=== PATIENT | male | born 1980 | race African-American/Black ===

== ENCOUNTER 2017-11-30 17:01 | Inpatient (IN) | payer OTHER ==
[2017-11-30 18:14] VITALS: BMI 50.2
--- NOTE | 2017-11-30 20:18 | HP ---
Admission ROS [facility] Chief Complaint: Seeking admission to Rehab Allergies/Adverse Reactions: Allergies Allergy/AdvReac Type Severity Reaction Status Date / Time shellfish derived Allergy Severe Hives Verified 11/30/17 18:15 History of Present Illness: 37 years old male with a long history of cocaine and marijuana dependence is seeking admission to Rehab. Patient was in court mandated Rehab. in 2001 at [facility]. He has medical history of asthma and depression. Denies suicide attempt and suicidal ideation at this time. Exam Limitations: No Limitations - Ebola screening Have you traveled outside of the country in the last 21 days: No Have you had contact with anyone from an Ebola affected area: No Have you been sick,other than usual withdrawal symptoms: No Do you have a fever: No - Review of Systems Constitutional: No Symptoms Reported EENT: reports: No Symptoms Reported Respiratory: reports: No Symptoms reported GI: reports: No Symptoms Reported : reports: No Symptoms Reported Musculoskeletal: reports: No Symptoms Reported Integumentary: reports: No Symptoms Reported Neuro: reports: No Symptoms reported Endocrine: reports: No Symptoms Reported Hematology: reports: No Symptoms Reported Psychiatric: reports: No Sypmtoms Reported, Mood/Affect Appropiate, Orientated x3 Other Systems: Reviewed and Negative Patient History - Patient Medical History Hx Anemia: No Hx Asthma: Yes (Albuterol) Hx Chronic Obstructive Pulmonary Disease (COPD): No Hx Cancer: No Hx Cardiac Disorders: No Hx Congestive Heart Failure: No Hx Hypertension: No Hx Hypercholesterolemia: No Hx Pacemaker: No HX Cerebrovascular Accident: No Hx Seizures: No Hx Dementia: No Hx Diabetes: No Hx Gastrointestinal Disorders: No Hx Liver Disease: No Hx Genitourinary Disorders: No Hx Sexually Transmitted Disorders: No Hx Renal Disease (ESRD): No Hx Thyroid Disease: No Hx Human Immunodeficiency Virus (HIV): No (Negative 201q8) Hx Hepatitis C: No Hx Depression: No Hx Suicide Attempt: No (Denies suicide attempt and suicidal ideation at this tuime) Hx Bipolar Disorder: No Hx Schizophrenia: No - Patient Surgical History Past Surgical History: No Hx Neurologic Surgery: No Hx Cataract Extraction: No Hx Cardiac Surgery: No Hx Lung Surgery: No Hx Abdominal Surgery: No Hx Appendectomy: No Hx Cholecystectomy: No Hx Genitourinary Surgery: No Hx Orthopedic Surgery: No Other Surgical History: Tonsillectomy 2000 Anesthesia Reaction: No - PPD History Previous Implant?: Yes Documented Results: Negative w/o proof Implanted On Prior [facility] Admission?: No PPD to be Administered?: Yes - Reproductive History Patient is a Female of Child Bearing Age (11 -55 yrs old): No (Male) - Smoking Cessation Smoking history: Current every day smoker Have you smoked in the past 12 months: Yes Aproximately how many cigarettes per day: 20 Hx Chewing Tobacco Use: No Initiated information on smoking cessation: Yes 'Breaking Loose' booklet given: 11/30/17 - Substance & Tx. History Hx Alcohol Use: No Hx Substance Use: Yes Substance Use Type: Cocaine, Marijuana Hx Substance Use Treatment: Yes ([facility]) Family Disease History - Family Disease History Family Disease History: Diabetes: Mother, Heart Disease: Mother Admission Physical Exam [facility] - Vital Signs Vital Signs: Vital Signs - 24 hr 11/30/17 18:12 Temperature 98.5 F Pulse Rate 95 H Respiratory 20 Rate Blood Pressure 160/120 - Physical General Appearance: Yes: Within Normal Limits HEENTM: Yes: Within Normal Limits, Normal ENT Inspection, Normocephalic, Normal Voice, BAYLEE Respiratory: Yes: Lungs Clear, Normal Breath Sounds, No Respiratory Distress Neck: Yes: Supple Breast: Yes: Breast Exam Deferred Cardiology: Yes: Regular Rhythm, Regular Rate, S1, S2 Abdominal: Yes: Normal Bowel Sounds, Soft Genitourinary: Yes: Within Normal Limits Back: Yes: Normal Inspection Musculoskeletal: Yes: Within Normal Limits Extremities: Yes: Normal Capillary Refill, Normal Inspection Neurological: Yes: Fully Oriented, Alert, Normal Mood/Affect Integumentary: Yes: Warm Lymphatic: Yes: Within Normal Limits - Diagnostic (1) Cocaine dependence, uncomplicated Current Visit: Yes Status: Chronic (2) Cannabis dependence, uncomplicated Current Visit: Yes Status: Chronic (3) Nicotine dependence Current Visit: Yes Status: Chronic (4) Depression Current Visit: Yes Status: Chronic Qualifiers: Depression Type: unspecified Qualified Code(s): F32.9 - Major depressive disorder, single episode, unspecified (5) Asthma Current Visit: Yes Status: Chronic Qualifiers: Asthma severity: mild Asthma persistence: intermittent Cleared for Admission [facility] - Detox or Rehab [facility] Level of Care: Observation Bed Claeared for Rehab Admission: Yes S Breath Alcohol Content Breath Alcohol Content: 0 Urine Drug Screen - Results Drug Screen Negative: No Urine Drug Screen Results: THC-Marijuana Inpatient Rehab Admission - Initial Determination Are CD services needed?: Yes Free of communicable disease: Yes Not in need of hospitalization: Yes - Rehab Admission Criteria Previous failed treatment: Yes Poor recovery environment: Yes Comorbidities: Yes Lacks judgement: No Patient is meeting Inpatient Rehab admission criteria:: Yes
[2017-11-30] MEDS ORDERED: MAGNESIUM CITRATE 300 ML BOTTLE PO PRN ×2 (20:28→20:30)
[2017-11-30] MEDS ORDERED: MAG HYDROX/AL HYDROX/SIMETH 30 ML UNIT-DOSE CUP PO PRN ×2 (20:28→20:30)
[2017-11-30] MEDS ORDERED: LOPERAMIDE HCL 2 MG CAPSULE PO PRN ×2 (20:28→20:30)
[2017-11-30] MEDS ORDERED: MENTHOL/PHENOL 1 EACH UD MM PRN ×2 (20:28→20:30)
[2017-11-30] MEDS ORDERED: MAGNESIUM HYDROX 2400MG/30ML ORAL SUSPENSION 30 ML CUP PO PRN ×2 (20:28→20:30)
[2017-11-30] MEDS ORDERED: ACETAMINOPHEN 325 MG TABLET (FP) PO PRN ×2 (20:28→20:30)
[2017-11-30] MEDS ORDERED: IBUPROFEN 400 MG TABLET (FP) PO PRN ×2 (20:28→20:30)
[2017-11-30] MEDS ORDERED: P-EPHED 60MG/TRIPROLIDI 2.5MG TABLET PO PRN ×2 (20:28→20:30)
[2017-11-30] MEDS ORDERED: guaiFENesin/D-METHORPHAN HB 10 ML UNIT-DOSE CUPS PO PRN ×2 (20:28→20:30)
[2017-11-30] MEDS ORDERED: THIAMINE HCL 100 MG TABLET (FP) PO SCH (22:00)
[2017-11-30] MEDS ORDERED: MELATONIN 5 MG TABLETS PO PRN ×2 (22:00)
[2017-11-30] MEDS ORDERED: TUBERCULIN PPD 5 TU/0.1ML VIAL ID ONE (23:25)
[2017-11-30] MEDS: THIAMINE HCL 100 MG TABLET (FP) PO SCH (23:29)
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
[2017-12-01] MEDS ORDERED: PRENATAL VITAMINS W/ FOLIC ACID TABLET (FP) PO SCH (10:00)
[2017-12-01] MEDS: NICOTINE 14 MG/24 HOURS TOPICAL PATCH TD SCH (10:09)
[2017-12-01] MEDS: PRENATAL VITAMINS W/ FOLIC ACID TABLET (FP) PO SCH (10:09)
[2017-12-01] MEDS ORDERED: hydrOXYzine PAMOATE 50 MG CAPSULE (FP) PO PRN (10:47)
[2017-12-01] MEDS: ESCITALOPRAM OXALATE 10 MG TABLET (FP) PO SCH (11:14)
[2017-12-01] MEDS: THIAMINE HCL 100 MG TABLET (FP) PO SCH (21:44)
[2017-12-02] MEDS: ESCITALOPRAM OXALATE 10 MG TABLET (FP) PO SCH (10:18)
[2017-12-02] MEDS: PRENATAL VITAMINS W/ FOLIC ACID TABLET (FP) PO SCH (10:18)
[2017-12-02] MEDS: NICOTINE 14 MG/24 HOURS TOPICAL PATCH TD SCH (10:19)
[2017-12-02] MEDS: NICOTINE POLACRILEX 2 MG GUM BUC PRN ×2 (10:19→20:28)
[2017-12-02] MEDS: THIAMINE HCL 100 MG TABLET (FP) PO SCH (21:27)
[2017-12-03] MEDS: NICOTINE POLACRILEX 2 MG GUM BUC PRN ×2 (06:22→10:26)
[2017-12-03] MEDS: NICOTINE 14 MG/24 HOURS TOPICAL PATCH TD SCH (10:25)
[2017-12-03] MEDS: ESCITALOPRAM OXALATE 10 MG TABLET (FP) PO SCH (10:25)
[2017-12-03] MEDS: PRENATAL VITAMINS W/ FOLIC ACID TABLET (FP) PO SCH (10:26)
[2017-12-03] MEDS: IBUPROFEN 400 MG TABLET (FP) PO PRN (16:47)
[2017-12-03] MEDS: THIAMINE HCL 100 MG TABLET (FP) PO SCH (21:14)
[2017-12-04] MEDS: PRENATAL VITAMINS W/ FOLIC ACID TABLET (FP) PO SCH (10:51)
[2017-12-04] MEDS: NICOTINE 14 MG/24 HOURS TOPICAL PATCH TD SCH (10:51)
[2017-12-04] MEDS: ESCITALOPRAM OXALATE 10 MG TABLET (FP) PO SCH (10:51)
[2017-12-04] MEDS: NICOTINE POLACRILEX 2 MG GUM BUC PRN (10:52)
[2017-12-04] MEDS: THIAMINE HCL 100 MG TABLET (FP) PO SCH (21:41)
[2017-12-04] MEDS: IBUPROFEN 400 MG TABLET (FP) PO PRN (22:36)
[2017-12-05] MEDS: NICOTINE POLACRILEX 2 MG GUM BUC PRN ×3 (06:32→21:32)
[2017-12-05] MEDS: PRENATAL VITAMINS W/ FOLIC ACID TABLET (FP) PO SCH (11:00)
[2017-12-05] MEDS: NICOTINE 14 MG/24 HOURS TOPICAL PATCH TD SCH (11:00)
[2017-12-05] MEDS: ESCITALOPRAM OXALATE 10 MG TABLET (FP) PO SCH (11:00)
--- NOTE | 2017-12-05 13:20 | EKG ---
Test Reason : Blood Pressure : / mmHG Vent. Rate : 091 BPM Atrial Rate : 091 BPM P-R Int : 154 ms QRS Dur : 084 ms QT Int : 350 ms P-R-T Axes : 047 052 022 degrees QTc Int : 430 ms SINUS RHYTHM WITH OCCASIONAL PREMATURE VENTRICULAR COMPLEXES OTHERWISE NORMAL ECG NO PREVIOUS ECGS AVAILABLE Confirmed by MD TOÑO, BILLY ([id number]) on 12/05/2017 1:19:55 PM Referred By: Confirmed By:BILLY LUNDBERG MD
[2017-12-05] MEDS: IBUPROFEN 400 MG TABLET (FP) PO PRN (16:46)
[2017-12-05] MEDS: THIAMINE HCL 100 MG TABLET (FP) PO SCH (21:31)
[2017-12-06] MEDS: NICOTINE POLACRILEX 2 MG GUM BUC PRN ×2 (06:17→09:53)
[2017-12-06] MEDS: ESCITALOPRAM OXALATE 10 MG TABLET (FP) PO SCH (09:51)
[2017-12-06] MEDS: NICOTINE 14 MG/24 HOURS TOPICAL PATCH TD SCH (09:52)
[2017-12-06] MEDS: PRENATAL VITAMINS W/ FOLIC ACID TABLET (FP) PO SCH (09:52)
[2017-12-06] MEDS: THIAMINE HCL 100 MG TABLET (FP) PO SCH (21:34)
[2017-12-07] MEDS: IBUPROFEN 400 MG TABLET (FP) PO PRN (06:46)
[2017-12-07] MEDS: NICOTINE 14 MG/24 HOURS TOPICAL PATCH TD SCH (10:02)
[2017-12-07] MEDS: PRENATAL VITAMINS W/ FOLIC ACID TABLET (FP) PO SCH (10:02)
[2017-12-07] MEDS: ESCITALOPRAM OXALATE 10 MG TABLET (FP) PO SCH (10:02)
[2017-12-07] MEDS: THIAMINE HCL 100 MG TABLET (FP) PO SCH (21:46)
[2017-12-08] MEDS: NICOTINE 14 MG/24 HOURS TOPICAL PATCH TD SCH (09:59)
[2017-12-08] MEDS: PRENATAL VITAMINS W/ FOLIC ACID TABLET (FP) PO SCH (09:59)
[2017-12-08] MEDS: ESCITALOPRAM OXALATE 10 MG TABLET (FP) PO SCH (09:59)
[2017-12-08] MEDS: NICOTINE POLACRILEX 2 MG GUM BUC PRN (10:00)
[2017-12-08] MEDS: IBUPROFEN 400 MG TABLET (FP) PO PRN (11:13)
--- NOTE | 2017-12-08 11:28 | PN ---
[facility] Progress Note Note: Psychiatric nurse practitioner note: Lexapro 5mg d/c. As per nursing staff patient is refusing to accept lexapro 5mg and is requesting the medication be discontinued.
--- NOTE | 2017-12-08 12:59 | PN ---
[facility] Progress Note Note: Patient completed with antibiotics for UTI. States Urine still dark and "foamy" . Denies dysuria and frequency. Afebrile. Medically stable. In no acute distress. Ambulating in unit without device. Vital Signs Temperature 97.9 F 12/08/17 07:02 Pulse Rate 87 12/08/17 07:02 Respiratory Rate 18 12/08/17 07:02 Blood Pressure 133/65 12/08/17 07:02 O2 Sat by Pulse Oximetry (%)
[2017-12-08] MEDS: THIAMINE HCL 100 MG TABLET (FP) PO SCH (21:44)
[2017-12-08 23:11] LABS: URINE APPEARANCE TURBID; URINE BILIRUBIN NEGATIVE (<2.0 mg/dL); URINE COLOR AMBER; URINE GLUCOSE (UA) NEGATIVE (NEGATIVE); URINE KETONE NEGATIVE (NEGATIVE); URINE LEUK ESTERASE NEGATIVE (NEGATIVE); URINE NITRITE NEGATIVE (NEGATIVE); URINE UROBILINOGEN NEGATIVE mg/dL (0.2-1.0)
[2017-12-08 23:22] LABS: URINE PROTEIN 3+ (NEGATIVE)
[2017-12-08 23:24] LABS: EPI CELLS RARE /HPF (FEW); URINE BACTERIA RARE /hpf (NONE SEEN); URINE MUCUS FEW
[2017-12-09] MEDS: NICOTINE 14 MG/24 HOURS TOPICAL PATCH TD SCH (10:23)
[2017-12-09] MEDS: PRENATAL VITAMINS W/ FOLIC ACID TABLET (FP) PO SCH (10:23)
[2017-12-09] MEDS: NICOTINE POLACRILEX 2 MG GUM BUC PRN ×2 (10:23→21:22)
[2017-12-09] MEDS: IBUPROFEN 400 MG TABLET (FP) PO PRN (15:03)
[2017-12-09] MEDS: THIAMINE HCL 100 MG TABLET (FP) PO SCH (21:23)
[2017-12-10] MEDS: IBUPROFEN 400 MG TABLET (FP) PO PRN (07:08)
[2017-12-10] MEDS: PRENATAL VITAMINS W/ FOLIC ACID TABLET (FP) PO SCH (10:08)
[2017-12-10] MEDS: NICOTINE 14 MG/24 HOURS TOPICAL PATCH TD SCH (10:09)
[2017-12-10] MEDS: NICOTINE POLACRILEX 2 MG GUM BUC PRN ×3 (10:10→21:24)
[2017-12-10] MEDS: THIAMINE HCL 100 MG TABLET (FP) PO SCH (21:24)
[2017-12-11 07:17] VITALS: BP 150/86; PULSE 102; TEMP 98.1
--- NOTE | 2017-12-11 09:02 | PN ---
Psychiatric Progress Note Vital Signs: Vital Signs Period Temp Pulse Resp BP Sys/Guerrero Pulse Ox Last 24 Hr 98.1 F 102 18 150/86 Date of Session: 12/11/17 Chief Complaint:: Discharge visit HPI: Patient addressed Cocaine,Cannabis dependence comorbid with Substance induced mood disorder. ROS: Significant for BA,obesity. Current Medications: Active Medications Generic Name Dose Route Start Last Admin Trade Name Freq PRN Reason Stop Dose Admin Acetaminophen 650 mg 11/30/17 20:28 12/08/17 16:26 Tylenol - PO 650 mg Q4H PRN Administration FEVER Al Hydroxide/Mg Hydroxide 30 ml 11/30/17 20:28 12/09/17 18:01 Mylanta Oral Suspension - PO 30 ml Q6H PRN Administration DYSPEPSIA Eucalyptus/Menthol/Phenol/Sorbitol 1 each 11/30/17 20:28 Cepastat Lozenge - MM Q4H PRN SORE THROAT Guaifenesin 10 ml 11/30/17 20:28 Robitussin Dm - PO Q6H PRN COUGH Hydroxyzine Pamoate 50 mg 12/01/17 10:47 Vistaril - PO Q4H PRN ANXIETY Ibuprofen 800 mg 12/01/17 13:11 12/10/17 07:08 Motrin - PO 800 mg Q8H PRN Administration PAIN LEVEL 6-10 Loperamide HCl 4 mg 11/30/17 20:28 Imodium - PO Q6H PRN DIARRHEA Magnesium Citrate 300 ml 11/30/17 20:28 12/10/17 07:09 Citroma - PO 300 ml Q48H PRN Administration CONSTIPATION Magnesium Hydroxide 30 ml 11/30/17 20:28 Milk Of Magnesia - PO DAILY PRN CONSTIPATION Magnesium Hydroxide 30 ml 11/30/17 20:30 Milk Of Magnesia - PO DAILY PRN CONSTIPATION Melatonin 5 mg 11/30/17 22:00 Melatonin PO HS PRN INSOMNIA Nicotine 14 mg 12/01/17 10:00 12/10/17 10:09 Nicoderm Patch - TD Not Given DAILY DREW Nicotine Polacrilex 2 mg 11/30/17 20:28 12/10/17 21:24 Nicorette Gum - BUC 2 mg Q2H PRN Administration NICOTINE REPLACEMENT RX Multivit/Folic Acid/Iron 1 tab 12/01/17 10:00 07/08/18 10:08 Vitamins ([facility]) - PO 1 tab DAILY DREW Administration Pseudoephedrine/Triprolidine 1 combo 11/30/17 20:28 Actifed - PO TID PRN NASAL CONGESTION Thiamine HCl 100 mg 11/30/17 22:00 12/10/17 21:24 Vitamin B1 - PO Not Given HS DREW Current Side Effect: No Lab tests ordered: No Lab tests reviewed: Yes Provider note:: Patient completed this program today.He has met his treatment goals and will continue to address his issues at [facility].patient identifies areas of difficulties,behaviors which contribute to relapse and ways , resourses he can utilize to maintain recovery.Coping skills,support system utlization has been discussed as well. Patient is stable for discharge today. Total face to face time:: 25 Mental Status Exam - Mental Status Exam Alert and Oriented to: Time, Place, Person Cognitive Function: Grossly Intact Patient Appearance: Well Groomed Mood: Hopeful Affect: Appropriate, Mood Congruent Patient Behavior: Cooperative Speech Pattern: Clear Voice Loudness: Normal Thought Process: Goal Oriented Thought Disorder: Not Present Hallucinations: Denies Suicidal Ideation: Denies Homicidal Ideation: Denies Insight/Judgement: Good Sleep: Fair Appetite: Good Muscle strength/Tone: Normal Gait/Station: Normal Psychiatric Treatment Plan - Problem List (1) Cocaine dependence, uncomplicated Current Visit: Yes (2) Cannabis dependence, uncomplicated Current Visit: Yes (3) Nicotine dependence Current Visit: Yes (4) Asthma Current Visit: Yes Qualifiers: Asthma severity: mild Asthma persistence: intermittent (5) Substance induced mood disorder Current Visit: Yes
[2017-12-11] MEDS: NICOTINE 14 MG/24 HOURS TOPICAL PATCH TD SCH (10:04)
[2017-12-11] MEDS: PRENATAL VITAMINS W/ FOLIC ACID TABLET (FP) PO SCH (10:04)
[2017-12-11] MEDS: NICOTINE POLACRILEX 2 MG GUM BUC PRN (10:04)
== END 2017-12-11 10:35 | disposition home or self-care (01) | DRG 772 ==
LOC: YASAS 17:01 → Y5N 19:22
PROVIDERS: ADMIT Psychiatry & Neurology Psychiatry; ATTEND Psychiatry & Neurology Psychiatry
PROC: HZ42ZZZ Group Counseling for Substance Abuse Treatment, Cognitive-Behavioral (ICD-10-PCS; principal; 2017-11-30)
DX: F14.20 Cocaine dependence, uncomplicated (principal); F12.20 Cannabis dependence, uncomplicated; F17.210 Nicotine dependence, cigarettes, uncomplicated; F19.24 Other psychoactive substance dependence with psychoactive substance-induced mood disorder; N39.0 Urinary tract infection, site not specified; J45.909 Unspecified asthma, uncomplicated; E66.9 Obesity, unspecified; Z68.43 Body mass index [BMI] 50.0-59.9, adult; Z91.013 Allergy to seafood
CPT/HCPCS: 81003; 81015; 87086; 93005; 93010